=== PATIENT | male | born 1960 | race Caucasian/White ===

== ENCOUNTER 2016-09-02 22:38 | Emergency (ER) | payer SELFPAY ==
[2016-09-02 22:47] VITALS: BP 188/100; BMI 34.7
--- NOTE | 2016-09-02 23:08 | DR.GENAD ---
HPI - PCP Primary Care Physician: NFD - Complaint/Symptoms Chief Complaint Doctors Comments: History of abdominal pain for months. Colonoscopy this year had noncancerous polyps. Seen in [facility] 5 days ago with unremarkable Ct abdomin and labs. Here tonight for diarrhea and abdominal pain in [place]. Chief Complaint:: PT STATES" I WENT TOO GUILLORY THURSDAY THEY DID CT SCAN AND LAB WORK TOLD ME TOO BE ON A BLAND DIET FOR A WEEK I'M NOT ANY BETTER" - Nurses notes reviewed Nurses Notes Review: Yes - Source History Provided: Patient - Mode of Arrival Mode of Arrival: Ambulatory - Timing Onset of Chief Complaint: 09/02/16 Came on: Gradually - Duration Duration: Intermittent How lon Duration: Days - Location Location: [place] - Severity Severity: Mild - Modifying Factors Worsens:: unknown - Associated Signs and Symptoms Associated Signs and Symptoms: gas PMH - PMH Past Medical History: Yes Past Medical History: Hypertension Past Surgical History: No - Family History History of Family Medical Conditions: No (UNKNOWN) - Social History Type of Tobacco Use: Cigarettes Does any household member use tobacco: Yes Alcohol Use: None Do you use any recreational Drugs:: No Lives With: Family Lives Where: Home - infectious screening In the last 2 months have you had wt loss of >10#?: NO Have you had fever, night sweats or hemotysis?: No Have you traveled outside the country in the last 6 months?: No Isolation: Standard ROS - Review of Systems Constitutional: No Symptoms Reported Eyes: No Symptoms Reported ENTM: No Symptoms Reported Respiratoy: No Symptoms Reported Cardiovascular: No Symptoms Reported Gastrointestinal/Abdominal: Abdominal Pain, Diarrhea Genitourinary: No Symptoms Reported Neurological: No Symptoms Reported Musculoskeletal: No Symptoms Reported Integumentary: No Symptoms Reported Hematologic/Lymphatic: No Symptoms Reported Endocrine: No Symptoms Reported Psychiatric: No Symptoms Reported PE - Vital Signs Vitals: Temperature 97.8 F Pulse Rate 67 Respiratory Rate 18 Blood Pressure 188/100 O2 Sat by Pulse Oximetry 98 - General Limitations: No Limitations General Appearance: Alert, In No Apparent Distress - Head Head Exam: Normal Inspection - Eyes Eye exam: Normal Appearance, EOMI. negative: Scleral Icterus, Conjunctival Injection - ENT ENT Exam: Normal Exam External Ear Exam: Normal External Inspection - Neck Neck Exam: Normal Inspection, Full ROM, Trachea Midline - Respiratory Respiratory Exam: negative: Accessory Muscle Use, Respiratory Distress Respiratory Exam: Bilateral Wheezing (mild) - Cardiovascular Cardiovascular Exam: Regular Rate - Abdominal Exam Abdominal Exam: Normal Inspection, Normal Bowel Sounds, Soft. negative: Distention, Tenderness, Guarding Abdominal Tenderness: [place] - Extremities Extremities Exam: Normal Inspection, Full ROM - Back Back Exam: Normal Inspection - Neurologic Neurological Exam: Alert, Oriented X3, CN II-XII Intact - Psychiatric Psychiatric Exam: Normal Mood - Skin Skin Exam: Intact, Normal Color ROR - Labs Reviewed Result Diagrams: 09/02/16 23:40 09/02/16 23:40 Laboratory: WBC 9.8 X10^3/uL (3.6-10.0) 09/02/16 23:40 RBC 4.98 X10^6/uL (4.7-6.0) 09/02/16 23:40 Hgb 15.1 g/dL (13.5-18.0) 09/02/16 23:40 Hct 43.4 % (42.0-54.0) 09/02/16 23:40 MCV 87.1 fL (80.0-100.0) 09/02/16 23:40 MCH 30.4 pg (27.0-34.0) 09/02/16 23:40 MCHC 34.9 g/dL (33.0-35.0) 09/02/16 23:40 RDW 13.9 % (11.6-16.5) 09/02/16 23:40 Plt Count 128 X10^3/uL (150.0-450.0) L 09/02/16 23:40 MPV 9.2 fL (7.4-11.0) 09/02/16 23:40 Neut % 66.4 % (42.0-75.0) 09/02/16 23:40 Lymph % 22.1 % (21.0-51.0) 09/02/16 23:40 [place] % 7.7 % (0.0-13.0) 09/02/16 23:40 Eos % 3.2 % (0.9-2.9) H 09/02/16 23:40 Baso % 0.6 % (0.2-1.0) 09/02/16 23:40 Neut # 6.5 x10^3/uL (2.2-4.8) H 09/02/16 23:40 Lymph # 2.2 X10^3/uL (1.3-2.9) 09/02/16 23:40 [place] # 0.8 x10^3/uL (0.3-0.8) 09/02/16 23:40 Eos # 0.3 x10^3/uL (0.0-0.2) H 09/02/16 23:40 Baso # 0.1 X10^3/uL (0.0-0.1) 09/02/16 23:40 Absolute Nucleated RBC 0.0 /100WBC 09/02/16 23:40 Sodium 142 mmol/L (136-145) 09/02/16 23:40 Corrected Sodium TNP 09/02/16 23:40 Potassium 3.6 mmol/L (3.5-5.1) 09/02/16 23:40 Chloride 105 mmol/L (98-107) 09/02/16 23:40 Carbon Dioxide 27.4 mmol/L (21-32) 09/02/16 23:40 BUN 7 mg/dL (7-18) 09/02/16 23:40 Creatinine 1.35 mg/dL (0.70-1.30) H 09/02/16 23:40 Est GFR (MDRD) Af Amer > 60 (>60) 09/02/16 23:40 Est GFR (MDRD) Non-Af 58 (>60) L 09/02/16 23:40 Glucose 102 mg/dL (65-99) H 09/02/16 23:40 Calcium 9.8 mg/dL (8.5-10.1) 09/02/16 23:40 Corrected Calcium TNP 09/02/16 23:40 Total Bilirubin 0.40 mg/dL (0.2-1.0) 09/02/16 23:40 AST 18 Units/L (15-37) 09/02/16 23:40 ALT 21 Units/L (12-78) 09/02/16 23:40 Alkaline Phosphatase 135 Units/L (46-116) H 09/02/16 23:40 Total Protein 7.5 g/dL (6.4-8.2) 09/02/16 23:40 Albumin 3.7 g/dL (3.4-5.0) 09/02/16 23:40 Globulin 3.8 g/dL (2.5-4.5) 09/02/16 23:40 Albumin/Globulin Ratio 1.0 Ratio (1.1-2.1) L 09/02/16 23:40 Amylase 54 Units/L (25-115) 09/02/16 23:40 Lipase 91 Units/L (73-393) 09/02/16 23:40 Specimen Type Clean catch urine 09/02/16 23:11 Urine Color Yellow (YELLOW) 09/02/16 23:11 Urine Appearance Clear (CLEAR) 09/02/16 23:11 Urine pH 6.0 (5.0 - 8.0) 09/02/16 23:11 Ur Specific [place] 1.015 (1.000-1.030) 09/02/16 23:11 Urine Protein Negative (NEGATIVE) 09/02/16 23:11 Urine Glucose (UA) Negative (NEGATIVE) 09/02/16 23:11 Urine Ketones Negative (NEGATIVE) 09/02/16 23:11 Urine Occult Blood Negative (NEGATIVE) 09/02/16 23:11 Urine Nitrite Negative (NEGATIVE) 09/02/16 23:11 Urine Bilirubin Negative (NEGATIVE) 09/02/16 23:11 Urine Urobilinogen Normal (NORMAL) 09/02/16 23:11 Ur Leukocyte Esterase Negative (NEGATIVE) 09/02/16 23:11 Urine RBC None seen /HPF (NEGATIVE) 09/02/16 23:11 Urine WBC 0-1 /HPF (NEGATIVE) 09/02/16 23:11 Ur Squamous Epith Cells Rare /HPF (NEGATIVE) 09/02/16 23:11 Urine Bacteria Negative /HPF (NEGATIVE) 09/02/16 23:11 Ur Culture Indicated? No/not indicated 09/02/16 23:11 Urine Opiates Screen Negative (NEG=<300) 09/02/16 23:11 Urine Methadone Screen Negative (NEG=<300) 09/02/16 23:11 Ur Barbiturates Screen Negative (NEG=<200) 09/02/16 23:11 Ur Phencyclidine Scrn Negative (NEG=<25) 09/02/16 23:11 Ur Amphetamines Screen Negative (NEG=<1000) 09/02/16 23:11 U Benzodiazepines Scrn Negative (NEG=<200) 09/02/16 23:11 Urine Cocaine Screen Negative (NEG=<300) 09/02/16 23:11 U Marijuana (THC) Screen Negative (NEG=<50) 09/02/16 23:11 - XRAY XRAY Interpreted by: Radiologist XRAY Findings: AAS: right 6mm stone - Diagnosis Discharge Problem: Abdominal pain Qualifiers: Abdominal location: left upper quadrant Qualified Code(s): R10.12 - Left upper quadrant pain Diarrhea Qualifiers: Diarrhea type: unspecified type Qualified Code(s): R19.7 - Diarrhea, unspecified - Discharge Plan Condition: Stable Prescriptions: Bismuth Subsalicylate [Kaopectate (New Formula)] 30 ml PO TID PRN #240 ml PRN Reason: Naproxen Sodium [Naproxen Sodium 275 mg] 275 mg PO BID PRN #60 tab PRN Reason: Pain/Inflammation - Follow ups/Referrals Follow ups/Referrals: NFD,None [Primary Care Provider] - 3 days - Instructions
[2016-09-02] MEDS ORDERED: CATAPRES TAB 0.2 MG PO ONE (23:11)
[2016-09-02] MEDS ORDERED: CATAPRES TAB 0.2 MG ONE (23:16)
[2016-09-02 23:19] LABS: BILIRUBIN,URINE NEGATIVE (NEGATIVE); BLOOD/HEMOGLOBIN,URINE NEGATIVE (NEGATIVE); GLUCOSE, URINE NEGATIVE (NEGATIVE); KETONES,URINE NEGATIVE (NEGATIVE); LEUKOCYTE ESTERASE ,URINE NEGATIVE (NEGATIVE); NITRITES,URINE NEGATIVE (NEGATIVE); PROTEIN,URINE NEGATIVE (NEGATIVE); UROBILINOGEN,URINE NORMAL (NORMAL)
[2016-09-02] MEDS ORDERED: DUONEB 0.5 MG/3 MG NEB ONE (23:26)
[2016-09-02 23:27] LABS: APPEARANCE,URINE CLEAR (CLEAR); BACTERIA,URINE NEGATIVE /HPF (NEGATIVE); COLOR,URINE YELLOW (YELLOW); RBC,URINE NONE SEEN /HPF (NEGATIVE); SQUAMOUS EPITHELIAL CELL,UR RARE /HPF (NEGATIVE)
[2016-09-02] MEDS ORDERED: DUONEB 0.5 MG/3 MG ONE (23:31)
--- NOTE | 2016-09-02 23:59 | RAD ---
Acute abdominal series Indication: Abdominal pain Comparison: None available Findings: The trachea is midline. The cardiac silhouette is unremarkable. The lungs are clear without focal infiltrate or effusion. The bony thorax is unremarkable. Flat and upright evaluation of the abdomen demonstrates a normal bowel gas pattern. An approximate 6 mm radiopaque density projecting over the right renal fossa suspicious for nephrolithiasis. The [place] structures are grossly intact. IMPRESSION: 1. No acute cardiopulmonary disease. 2. A 6 mm calcific density projecting over the right renal fossa suspicious for nephrolithiasis . Co rrelation with urinalysis and patient's symptoms. Reported By:
[2016-09-03] LABS: ALANINE AMINOTRANSFERASE 21 Units/L (12-78); ALBUMIN 3.7 g/dL (3.4-5.0); ALKALINE PHOSPHATASE 135 Units/L (46-116); AMYLASE 54 Units/L (25-115); ASPARTATE AMINO TRANSFERASE 18 Units/L (15-37); BLOOD UREA NITROGEN 7 mg/dL (7-18); CALCIUM 9.8 mg/dL (8.5-10.1); CARBON DIOXIDE 27.4 mmol/L (21-32); CHLORIDE 105 mmol/L (98-107); CREATININE 1.35 mg/dL (0.70-1.30); GLUCOSE 102 mg/dL (65-99); LIPASE 91 Units/L (73-393); SODIUM 142 mmol/L (136-145); TOTAL PROTEIN 7.5 g/dL (6.4-8.2); eGFR BLACK RACES > 60 (>60); eGFR NON BLACK RACES 58 (>60)
[2016-09-03 00:02] LABS: BASOPHILS # (AUTO) 0.1 X10^3/uL (0.0-0.1); BASOPHILS % (AUTO) 0.6 % (0.2-1.0); EOSINOPHILS # (AUTO) 0.3 x10^3/uL (0.0-0.2); EOSINOPHILS % (AUTO) 3.2 % (0.9-2.9); HEMATOCRIT 43.4 % (42.0-54.0); HEMOGLOBIN 15.1 g/dL (13.5-18.0); LYMPHOCYTES # (AUTO) 2.2 X10^3/uL (1.3-2.9); LYMPHOCYTES % (AUTO) 22.1 % (21.0-51.0); MEAN CORPUSCULAR HEMOGLOBIN 30.4 pg (27.0-34.0); MEAN CORPUSCULAR HGB CONC 34.9 g/dL (33.0-35.0); MEAN CORPUSCULAR VOLUME 87.1 fL (80.0-100.0); MEAN PLATELET VOLUME 9.2 fL (7.4-11.0); MONOCYTES # (AUTO) 0.8 x10^3/uL (0.3-0.8); MONOCYTES % (AUTO) 7.7 % (0.0-13.0); NEUTROPHILS # (AUTO) 6.5 x10^3/uL (2.2-4.8); NEUTROPHILS % (AUTO) 66.4 % (42.0-75.0); RED BLOOD COUNT 4.98 X10^6/uL (4.7-6.0); RED CELL DISTRIBUTION WIDTH 13.9 % (11.6-16.5); WHITE BLOOD COUNT 9.8 X10^3/uL (3.6-10.0)
[2016-09-03 00:04] LABS: PLATELET COUNT 128 X10^3/uL (150.0-450.0)
== END 2016-09-03 00:24 | disposition home or self-care (01) ==
LOC: ER 22:38
DX: R10.12 Left upper quadrant pain (principal); R19.7 Diarrhea, unspecified; Z86.010 Personal history of colon polyps
CPT/HCPCS: 36415; 74022; 80053; 80307; 81001; 82150; 83690; 85025; 94640; 99283; G0434; J7620